=== PATIENT | female | born 1945 | race Caucasian/White ===

== ENCOUNTER 2020-05-24 07:59 | Outpatient (CLI) | payer MEDICARE, BC ==
[2020-05-24] MEDS ORDERED: FLUMAZENIL 0.1 MG/1 ML, 5ML ONE (10:09)
[2020-05-24] MEDS ORDERED: NALOXONE 1 MG/ML, 2ML ONE (10:09)
[2020-05-24] MEDS ORDERED: MIDAZOLAM 1 MG/ML, 5ML ONE (10:09)
[2020-05-24] MEDS ORDERED: FENTANYL PF 100 MCG/2ML ONE (10:09)
[2020-05-24] MEDS ORDERED: GADOTERATE 7.5 MMOL/15 ML VIAL ONE (10:34)
== END 2020-05-24 23:59 | disposition home or self-care (01) ==
LOC: RAD 07:59
PROVIDERS: ATTEND Urology
DX: N28.89 Other specified disorders of kidney and ureter (principal); N28.1 Cyst of kidney, acquired; N13.39 Other hydronephrosis; K76.89 Other specified diseases of liver; I10 Essential (primary) hypertension; Z79.899 Other long term (current) drug therapy
CPT/HCPCS: 74183; 99156; 99157; A9575; J2250; J3010; J2310